=== PATIENT | female | born 1985 | race Caucasian/White ===

== ENCOUNTER 2016-08-07 18:03 | Emergency (ER) | payer SELFPAY ==
[~2016-08-07] VITALS: Ht 162.6 cm; Wt 64.0 kg
[~2016-08-07 18:03] MED LIST: ALBU8.5H3 INH; BECL8.7A INH; FER325 PO; PREN1TAB49 PO; URSO300C21 PO
[2016-08-07 18:42] VITALS: Ht 162.6 cm; Wt 64.0 kg
== END 2016-08-07 20:04 | disposition left against medical advice (07) ==
LOC: E/R 18:03
DX: Z53.21 Procedure and treatment not carried out due to patient leaving prior to being seen by health care provider (principal)